=== PATIENT | male | born 2000 | race Hispanic/Latino ===

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

== ENCOUNTER 2020-03-07 00:56 | Emergency (ER) | payer OTHER ==
--- OUTSIDE RECORDS SUMMARY | 2020-03-07 00:59 | XMS REPORT | Continuity of Care Document ---
:2000 Author Organization [employer] Care Team Providers Name Role Phone [employer] Unavailable Un available Problems Problem Status Onset Classification Date Comments Sourc e Date Reported RIGHT BICEP [facility] KN[facility]HIP/[facility] 9 [place] [facility] Medications No Data Provided for This Section Allergies, Adverse Reactions, Alerts No Known Medication Allergies Immunizations No Data Provided for This Section Results No Data Provided for This Section Pathology Reports No Data Provided for This Section Diagnostic Reports No Data Provided for This Section Consultation Notes No Data Provided for This Section Discharge Summaries No Data Provided for This Section History and Physicals No Data Provided for This Section Vital Signs No Data Provided for This Section Encounters Location Location Encounter Encounter Reason Attending ADM DC Stat Source Details Type Number For Provider Date Date Visit [facility] OP Therapy [id number] Melo Kim 09/08 10/08 [facility] Patients /2018 [facility] [place] [facility] OP Therapy [id number] Melo Kim 04/18 05/18 [facility] Patients /2018 [facility] [place] Procedures No Data Provided for This Section Assessment and Plan No Data Provided for This Section Plan of Care No Data Provided for This Section Social History Social History Date Source No data available for this 05/18/2019 [facility] Family History No Data Provided for This Section Advance Directives No Data Provided for This Section Functional Status No Data Provided for This Section
--- OUTSIDE RECORDS SUMMARY | 2020-03-07 01:00 | XMS REPORT | Continuity of Care Document ---
:2000 Author Organization [facility] t Address [address] [place] [address] Care Team Providers Name Role Phone KALEB ALVAREZ M.D. Attending Clinician Unavailable Kaleb Alvarez Attending Clinician DR VENKATA Attending Clinician Unavailable DR VENKATA Admitting Clinician Unavailable Payers Payer Name Policy Type Policy Number Effective Date Expiration Date S ource Problems Condition Condition Condition Status Onset Resolution Last Treating Co mments Source Name Details Category Date Date Treatment Clinician Date RIGHT Diagnosis Active 2019-04-18 [facility] BICEP 9-03 16:13:00 l RIGHT 08:00: [place] BICEP 00 Active 04/05/2019 [facility] [place] RT Diagnosis Active 2018-09-10 Mem [facility] KNEE/HIP/Q -29 15:01:00 l UAD RT 16:12: [place] KNEE/HIP/Q 00 UAD Active 08/31/2018 [facility] [place] Biceps Biceps Problem Active [facility] tendinitis tendinitis it y of of right of right [place] upper upper Physici extremity extremity ans Right Right Problem Active [facility] elbow pain elbow pain it y of [place] [facility] ans Allergies, Adverse Reactions, Alerts Allergy Allergy Status Severity Reaction(s) Onset Inactive Treating Comm ents Source Name Type Date Date Clinician No Known DA Active [facility] 01-25 [place] [facility] amoxicil DA Active SV 2018- [facility] rosalie 6-25 [place] [facility] Social History Social Habit Start Date Stop Date Quantity Comments Source Social History 2019-05-18 2019-05-[address] [facility] Sourav de luna 04:59:00 04:59:00 Medications Ordered Filled Start Stop Current Ordering Indication Dosage Frequency Signature Comments Components Source Medication Medication Date Date Medication? Clinician (SIG) Name Name methylPREDN methylPREDN Yes KALEB ALVAREZ Take as Univers ISolone 4 ISolone 4 8-29 M.D. direct on ity of MG Oral MG Oral 00:00: the [place] Tablet Tablet 00 package. Physici Therapy Therapy QTY 1 x 21 ans Pack Pack tablet pack Diclofenac Diclofenac Yes KALEB ALVAREZ QD APPLY TO Univers Sodium 1 % Sodium 1 % 1-24 M.D. LOWER it y of Transdermal Transdermal 00:00: EXTREMITIE [place] Gel Gel 00 S, 4 GM OF Physici GEL TO ans AFFECTED AREA 4 TIMES DAILY. DO NOT APPLY MORE THAN 16 GM DAILY TO ANY ONE AFFECTED JOINT. Meloxicam Meloxicam Yes KALEB ALVAREZ 1 TAKE 1 Univers 15 MG Oral 15 MG Oral 1-24 M.D. TABLET i ty of Tablet Tablet 00:00: DAILY [place] 00 NEEDED. Physici ans Immunizations Ordered Immunization Filled Immunization Date Status Commen ts Source Name Name Varivax 1350 2012-12-14 Completed University o f PFU/0.5ML 00:00:00 [place] [facility] ns Subcutaneous Injectable Boostrix 5-2.5-18.5 2012-11-25 Completed Unive rsity of Intramuscular 00:00:00 [place] Physi cians Suspension Meningococcal, MCV4, 2012-11-25 Completed Univ ersity of unspecified 00:00:00 [place] [facility] ans conjugate formulation(groups A, C, Y and W-135) Hepatitis B, 2000 Completed University o f pediatric/adolescent 00:00:00 Clarissa enriquez Physicians dosage Procedures Procedure Date / Time Performed Performing Clinician Sourc e [U] XRAY HIP 2019-09-26 00:00:00 [facility] [place] UNILATERAL MIN 2 VWS Physicians RIGHT [id number] [U] XRAY ELBOW MIN 3 2019-06-23 00:00:00 [facility] [place] VWS RIGHT [id number] Physicians [U] XRAY SHOULDER MIN 2019-03-31 00:00:00 [facility] 2 VWS RIGHT [id number] Physicians [U] XRAY HIP 2019-03-30 00:00:00 [facility] UNILATERAL MIN 2 VWS Physicians RIGHT [id number] Encounters Start End Encounter Admission Attending Care Care Encounter Source Date/Time Date/Time Type Type Clinicians Facility Department ID 2019-09-27 2019-09-27 Appointmen NORMA ALVAREZ [facility] [id number] Univers 09:45:00 09:45:00 t; KALEB ALVAREZ M.D. - Trimontrocio Galindo M.D. [place] [facility] ans 2019-06-23 2019-06-23 Appointmen NORMA ALVAREZ [facility] [id number] Univers 15:45:00 15:45:00 t; KALEB ALVAREZ M.D. i ty of [place], M.D. [place] [facility] ans 2019-06-23 2019-06-23 Appointmen NORMA ALVAREZ [facility] [id number] Univers 12:45:00 12:45:00 t; KALEB ALVAREZ M.D. - Trimontrocio Galindo M.D. [place] [facility] 2019-05-19 2019-05-19 Appointmen NORMA ALVAREZ [facility] [id number] Univers 15:45:00 15:45:00 t; KALEB ALVAREZ M.D. i ty of [place], M.D. [place] [facility] ans 2019-04-18 2019-05-17 Outpatient Kaleb Alvarez [id number]. [id number]. 1. [id number] 15:50:00 23:59:00 [place] [id number] [id number] 2019-03-31 2019-03-31 Appointmen NORMA ALVAREZ [facility] [id number] Univers 14:45:00 14:45:00 t; KALEB ALVAREZ M.D. - Michell Galindo M.D. [place] [facility] 2018-10-28 2018-10-28 Appointmen NORMA ALVAREZ [facility] [id number] Univers 16:00:00 16:00:00 t; KALEB ALVAREZ M.D. at [facility] 2018-10-21 2018-10-21 Appointmen [facility] [id number] Univers 14:45:00 14:45:00 t; KALEB ALVAREZ M.D. i ty of [facility] 2018-09-08 2018-10-07 Outpatient Kaleb Alvarez [id number]. [id number]. 1. [id number] 16:00:00 23:59:00 [place] [id number] [id number] 2018-08-26 2018-08-26 Appointmen NORMA ALVAREZ [facility] [id number] Univers 15:30:00 15:30:00 t; KALEB ALVAREZ M.D. at [facility] 2018-05-20 2018-05-20 Outpatient Aye [facility] [id number] [place] 04:34:00 07:15:00 [facility] Results Test Description Test Time Test Comments Results Result [facility] e Comments [U] XRAY 2019-03-04 Images acquired, Universi ty of SHOULDER MIN 2 9 not reported on [facility] RIGHT [id number] 15:17:00 this accession Physi cians number. SURG 2019-01-02 8 16:21:00 RUN DATE: 01/28/19 [facility] - LAB *LIVE* PAGE 1 RUN TIME: 1621 Specimen Inquiry RUN USER: INTERFACE GINGER IENT: MARIAH BERTRAND LOC: Kenna U #: [id number] AGE/SX: 18/M ROOM: [facility] RE01/27/19[facility] DR: Jasmeet Sotomayor III : 00 BED: 1 DIS: STATUS: ADM Princess TLOC: SPEC #: [id number] RECD: 01/27/19 STATUS: [place] REQ #: [id number] CELIA: 01/27/[address] [facility] [address]: Jasmeet Sotomayor III, MD ENTERED: 01/27/19 SP TYPE: SURG OTHR DR: Didier Zuñiga MD ORDERED: SURG PATH LVL 1, SURG PATH LVL 10/03 COPIES TO: Didier Zuñiga MD [address] [place], [place] [address] [place] [address] [facility] [address] [place] [address] HISTOLOGY: TISSUE ID BLK PCS MYLA LEV PROCEDURE DISPOSITION ____ ___ ___ ___ TONSIL, NOS A 1 1 TONSIL, NOS B 1 1 NASAL SEPTUM, N C 1 1 NASAL TURBINATE D 1 1 PROCEDURES: SURG PATH LVL 1 (01/28/19) SURG PATH LVL 3 (01/27/19) TISSUES: A. TONSIL, NOS - RIGHT TONSIL B. TONSIL, NOS - LEFT TONSIL C. NASAL SEPTUM, NOS - SEPTUM D. 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 Tonsil, right, tonsillectomy: CHRONIC TONSILLITIS CONTINUED ON NEXT PAGE RUN DATE: 01/28/19 [facility] - LAB *LIVE* PAGE 2 RUN TIME: 1621 Specimen Inquiry RUN USER: INTERFACE JOHN Griffiths #: [id number] PATIENT: MARIAH BERTRAND #[id number] (Continued)-------- -------- FINAL DIAGNOSIS (Continued) B. Tonsil, left, tonsillectomy: CHRONIC TONSILLITIS C. Nasal septum, septoplasty: UNREMARKABLE FRAGMENTS OF BONE AND CARTILAGE (GROSS DIAGNOSIS ONLY) D. Turbinates, excision: MILD CHRONIC INFLAMMATION GROSS DESCRIPTION A. Right tonsil. Received in formalin is a fragment of welsh-brown soft tissue, partially covered by pink-welsh mucosa, 2.5 x 1.7 x 0.8 cm. The cut surface is soft, pink-welsh with crypts. No gross lesion is identified. Dielectric Press Operator section submitted as A. B. Left tonsil. Received in formalin is a fragment of welsh-brown soft tissue, partially covered by pink-welsh mucosa, 3.0 x 2.0 x 0.8 cm. The cut surface is soft, pink-welsh with crypts. No gross lesion is identified. Dielectric Press Operator section submitted as B. C. Septum. Received in formalin are multiple irregular fragments of cartilage and bones, 3.5 x 3.0 x 0.5 cm in aggregate. The specimen is for gross identification only and is photographed. D. Turbinates. Received in formalin are irregular fragments of welsh-brown soft tissue admixed with dark brown blood clots, 2.5 x 1.0 x 0.3 cm in aggregate. Dielectric Press Operator sections submitted as D. ba/nr Grossing performed at [facility] Pathology, [address] [place] [address], [address], [place] [address]. Artificial Inseminator: Giovani Smalls M.D. MICROSCOPIC DESCRIPTION A. Right tonsil. Sections demonstrate tonsillar tissue with lymphoid hyperplasia. Associated squamous mucosa demonstrates acute and chronic inflammation. No dysplasia or malignancy is identified. B. Left tonsil. Sections demonstrate tonsillar tissue with lymphoid hyperplasia. Associated squamous mucosa demonstrates acute and chronic inflammation. No dysplasia or malignancy is identified. C. Septum. No sections submitted. Gross diagnosis only. D. Turbinates. Sections demonstrate respiratory mucosa with underlying glands and mild chronic inflammation. No dysplasia or malignancy is identified. CONTINUED ON NEXT PAGE RUN DATE: 01/28/19 [facility] - LAB *LIVE* PAGE 3 RUN TIME: 1621 Specimen Inquiry RUN USER: INTERFACE JOHN Griffiths #: [id number] PATIENT: MARIAH BERTRAND #[id number] (Continued)-------- -------- Signed SIGNATURE ON FILE Jorje Deal Alannah 01/28/19 1621 END OF REPORT PROTHROMBIN TIME 2019-01-27 06:59:00 Test Item Value Reference Range Interpretation Jeannine guzmán PT PATIENT (test code = PTP) 12.1 SECONDS 9.3-12.9 N INTERNATIONAL NORMAL RATIO (test code = INR) 1.05 INR Unit 0.8-1.2 N THROMBOPLASTIN TIME [id number] 06:59:00 Test Item Value Reference Range Interpretation Comments THROMBOPLASTIN TIME PARTIAL 30.4 SECONDS 26-35 N (test code = PTT) CBC W/AUTO [id number] 06:20:00 Test Item Value Reference Range Interpretation Comments WHITE BLOOD CELL (test code = 5.5 K/mm3 3.5-11.0 N WBC) RED BLOOD CELL (test code = RBC) 4.71 M/mm3 4.70-6.10 N HEMOGLOBIN (test code = HGB) 15.3 G/DL 12.3-15.9 N HEMATOCRIT (test code = HCT) 43.2 % 35.8-46.7 N MEAN CELL VOLUME (test code = 91.7 Fl 86.3-98.9 N MCV) MEAN CELL HGB (test code = MCH) 32.5 pg 28.9-34.4 N MEAN CELL HGB CONCETRATION (test 35.4 G/DL 32.1-34.5 H code = MCHC) RED CELL DISTRIBUTION WIDTH (test 12.8 SD 11.5-14.5 N code = RDW) PLATELET COUNT (test code = PLT) 223.0 K/mm3 150-450 N MEAN PLATELET VOLUME (test code = 10.10 fL 7.0-9.6 H MPV) NEUTROPHIL % (test code = NT%) 40.2 % 24.0-85.0 N LYMPHOCYTE % (test code = LY%) 44.6 % 20.5-51.1 N MONOCYTE % (test code = MO%) 12.1 % 1.7-9.3 H EOSINOPHIL % (test code = EO%) 2.0 % 0.0-6.0 N BASOPHIL % (test code = BA%) 1.1 % 0.0-2.0 N NEUTROPHIL # (test code = NT#) 2.23 K/mm3 1.8-7.6 N LYMPHOCYTE # (test code = LY#) 2.5 K/mm3 0.6-3.0 N MONOCYTE # (test code = MO#) 0.7 K/mm3 0.2-1.5 N EOSINOPHIL # (test code = EO#) 0.1 K/mm3 0.0-0.4 N BASOPHIL # (test code = BA#) 0.1 K/mm3 0.0-0.2 N MANUAL DIFF REQUIRED (test code = NO DIFF/SCN CRITERIA MDIFF) [U] XRAY KNEE 1 OR 2 VWS RIGHT [id number] 15:21:00Images acquired, not reported on this accession number.[facility]
[2020-03-07] MEDS ORDERED: KETOROLAC 30 MG/ML INJ ONE (01:42)
[2020-03-07] MEDS ORDERED: HYDROMORPHONE HCL 1 MG/ML INJ ONE (01:43)
[2020-03-07] MEDS ORDERED: ONDANSETRON 4 MG (ODT) TAB ONE (01:43)
--- NOTE | 2020-03-07 02:26 | EDPHYS ---
Physician Documentation [facility] Name: Gallo Carreno IV Age: 19 yrs Sex: Male : 2000 Arrival Date: 03/07/2020 Time: 00:59 Bed 15 Private MD: Didier Zuñiga ED Physician Donell Jalloh HPI: 03/07 01:48 This 19 yrs old Male presents to ER via Ambulatory with complaints of Post jr8 Surgical Pain. 01:48 The complaints affect the right wrist diffusely. Onset: The symptoms/episode jr8 began/occurred acutely, today. Modifying factors: The symptoms are alleviated by nothing, the symptoms are aggravated by movement. Associated signs and symptoms: The patient has no apparent associated signs or symptoms. The patient has not experienced similar symptoms in the past. The patient has been recently seen by a physician:. Patient had recent carpal tunnel release. Stated that today he had brace on wrong. Started to have pain at surgical site that has now intensified and that his OTC medicines and prescriptive medicines are not working . Historical: - Allergies: 01:15 Amoxicillin; mt2 - Home Meds: 01:20 Lyrica Oral 1 cap 3 times per day [Active]; Wellbutrin 75 mg Oral tab 1 tab DAILY mt2 [Active]; hydroxyzine HCl 25 mg Oral tab 1 tab PRN for Anxiety [Active]; hydrocodone-acetaminophen 5-325 mg Oral tab 1 tab every 6 hours for Pain [Active]; - PSHx: 01:15 Tonsillectomy; mt2 - Immunization history:: Adult Immunizations up to date. - Social history:: Smoking status: Patient denies any tobacco usage or history of. ROS: 01:48 Eyes: Negative for injury, pain, redness, and discharge, ENT: Negative for injury, jr8 pain, and discharge, Neck: Negative for injury, pain, and swelling, Cardiovascular: Negative for chest pain, palpitations, and edema, Respiratory: Negative for shortness of breath, cough, wheezing, and pleuritic chest pain, Abdomen/GI: Negative for abdominal pain, nausea, vomiting, diarrhea, and constipation, Back: Negative for injury and pain, Skin: Negative for injury, rash, and discoloration, Neuro: Negative for headache, weakness, numbness, tingling, and seizure. 01:48 MS/extremity: Positive for pain, tenderness, of the right hand. Exam: 01:48 Cardiovascular: Regular rate and rhythm with a normal S1 and S2. No gallops, murmurs, jr8 or rubs. Normal PMI, no JVD. No pulse deficits. Respiratory: Lungs have equal breath sounds bilaterally, clear to auscultation and percussion. No rales, rhonchi or wheezes noted. No increased work of breathing, no retractions or nasal flaring. Skin: Warm, dry with normal turgor. Normal color with no rashes, no lesions, and no evidence of cellulitis. Neuro: Awake and alert, GCS 15, oriented to person, place, time, and situation. Cranial nerves II-XII grossly intact. Motor strength 5/5 in all extremities. Sensory grossly intact. Cerebellar exam normal. Normal gait. 01:48 Constitutional: The patient appears alert, awake, anxious, in obvious pain, uncomfortable. 01:48 Musculoskeletal/extremity: Extremities: grossly normal except: noted in the right wrist/hand: Patient has approximately 2.5 cm surgical incision noted to right wrist region from carpal tunnel release. Sutures in place. No dehiscence noted. No erythema or discharge noted. Moderate pain to palpation , ROM: intact in all extremities, Circulation is intact in all extremities. Sensation intact. Vital Signs: 01:11 BP 121 / 70; Pulse 118; Resp 16; Temp 98.5; Pulse Ox 100% ; Weight 56.7 kg; Pain 10/10; mt2 02:00 BP 96 / 56; Pulse 81; Resp 16; Pulse Ox 97% ; Pain 3/10; mt2 MDM: 01:12 Patient medically screened. jr8 01:48 Data reviewed: vital signs, nurses notes, and as a result, I will discharge patient. jr8 Data interpreted: Pulse oximetry: on room air is 97 %. Interpretation: normal. Counseling: I had a detailed discussion with the patient and/or guardian regarding: the historical points, exam findings, and any diagnostic results supporting the discharge/admit diagnosis, the need for outpatient follow up, a orthopedic surgeon, to return to the emergency department if symptoms worsen or persist or if there are any questions or concerns that arise at home. ED course: Discussed with patient that he is likely having some breakthrough pain. Patient feeling better. No other acute findings on exam suggestive of infection or other post surgical complications that would warrant emergent admission and consultation with orthopedics. Will have him f/u up with Dr. Salazar tomorrow. Patient good with plan . Administered Medications: 01:39 Drug: Zofran (Ondansetron) 4 mg Route: PO; mt2 02:00 Follow up: Response: No adverse reaction; Pain is decreased mt2 01:39 Drug: TORadol - Ketorolac 15 mg Route: IM; Site: left deltoid; mt2 02:00 Follow up: Response: No adverse reaction; Pain is decreased mt2 01:39 Drug: Dilaudid 1 mg Route: IM; Site: left deltoid; mt2 02:00 Follow up: Response: No adverse reaction; Pain is decreased mt2 Disposition: 03:10 Co-signature as Attending Physician, Donell Jalloh MD. rn Disposition: 03/07/20 02:25 Discharged to Home. Impression: Other acute postprocedural pain. - Condition is Stable. - Discharge Instructions: Pain Medicine Instructions. - Medication Reconciliation Form, Thank You Letter, Antibiotic Education, Prescription Opioid Use form. - Follow up: Stevie Carias MD; When: Tomorrow; Reason: Recheck today's complaints, Continuance of care, Re-evaluation by your physician. - Problem is new. - Symptoms have improved. Signatures: Donell Jalloh MD MD rn Roszak, Josh, PA PA jr8 Vi Mon RN RN mt2 Corrections: (The following items were deleted from the chart) 02:33 02:25 03/07/2020 02:25 Discharged to Home. Impression: Other acute postprocedural pain. mt2 Condition is Stable. Forms are Medication Reconciliation Form, Thank You Letter, Antibiotic Education, Prescription Opioid Use. Follow up: Stevie Carias; When: Tomorrow; Reason: Recheck today's complaints, Continuance of care, Re-evaluation by your physician. Problem is new. Symptoms have improved. jr8
--- NOTE | 2020-03-07 02:26 | ER ---
Nurse's Notes [facility] Name: Gallo Carreno IV Age: 19 yrs Sex: Male : 2000 Arrival Date: 03/07/2020 Time: 00:59 Bed 15 Private MD: Didier Zuñiga Diagnosis: Other acute postprocedural pain Presentation: 03/07 01:11 Chief complaint: Patient states: PER PT S/P CARPAL TUNNEL SX ON RIGHT WRIST. PAIN HAS mt2 INCREASED AND IT IS INTOLERABLE. NOS/S OF REDNESS OR SWELLING. Coronavirus screen: Client denies travel out of the [place] in the last 14 days. At this time, the client does not indicate any symptoms associated with coronavirus-19. Ebola Screen: No symptoms or risks identified at this time. Initial Sepsis Screen: Does the patient meet any 2 criteria? No. Patient's initial sepsis screen is negative. Does the patient have a suspected source of infection? No. Patient's initial sepsis screen is negative. Risk Assessment: Do you want to hurt yourself or someone else?. Onset of symptoms was March 06, 2020. 01:11 Method Of Arrival: Ambulatory mt2 01:11 Acuity: AIME 4 mt2 Triage Assessment: 01:15 General: Appears uncomfortable, Behavior is cooperative. Pain: Complains of pain in mt2 right hand Pain currently is 10 out of 10 on a pain scale. Musculoskeletal: Denies numbness in, right hand pain in, right hand. Historical: - Allergies: 01:15 Amoxicillin; mt2 - Home Meds: 01:20 Lyrica Oral 1 cap 3 times per day [Active]; Wellbutrin 75 mg Oral tab 1 tab DAILY mt2 [Active]; hydroxyzine HCl 25 mg Oral tab 1 tab PRN for Anxiety [Active]; hydrocodone-acetaminophen 5-325 mg Oral tab 1 tab every 6 hours for Pain [Active]; - PSHx: 01:15 Tonsillectomy; mt2 - Immunization history:: Adult Immunizations up to date. - Social history:: Smoking status: Patient denies any tobacco usage or history of. Screenin:16 Abuse screen: Denies threats or abuse. Nutritional screening: No deficits noted. mt2 Tuberculosis screening: No symptoms or risk factors identified. Fall Risk None identified. Assessment: 02:00 Reassessment: Patient and/or family updated on plan of care and expected duration. Pain mt2 level reassessed. Patient is alert, oriented x 3, equal unlabored respirations, skin warm/dry/pink. General: Appears comfortable, Behavior is cooperative. Pain: Complains of pain in right hand Pain currently is 3 out of 10 on a pain scale. Quality of pain is described as aching. Vital Signs: 01:11 BP 121 / 70; Pulse 118; Resp 16; Temp 98.5; Pulse Ox 100% ; Weight 56.7 kg; Pain 10/10; mt2 02:00 BP 96 / 56; Pulse 81; Resp 16; Pulse Ox 97% ; Pain 3/10; mt2 ED Course: 00:59 Patient arrived in ED. es 01:00 Didier Zuñiga MD is Private Physician. es 01:03 Vi Mon, JIE is Primary Nurse. mt2 01:12 [facility] jr8 01:12 Donell Jalloh MD is Attending Physician. jr8 01:14 Triage completed. mt2 01:16 Arm band placed on right wrist. mt2 01:16 Bed in low position. Call light in reach. Side rails up X 1. mt2 02:24 Stevie Carias MD is Referral Physician. jr8 02:27 No provider procedures requiring assistance completed. Patient did not have IV access mt2 during this emergency room visit. Administered Medications: 01:39 Drug: Zofran (Ondansetron) 4 mg Route: PO; mt2 02:00 Follow up: Response: No adverse reaction; Pain is decreased mt2 01:39 Drug: TORadol - Ketorolac 15 mg Route: IM; Site: left deltoid; mt2 02:00 Follow up: Response: No adverse reaction; Pain is decreased mt2 01:39 Drug: Dilaudid 1 mg Route: IM; Site: left deltoid; mt2 02:00 Follow up: Response: No adverse reaction; Pain is decreased mt2 Outcome: 02:25 Discharge ordered by . jr8 02:27 Discharged to home ambulatory. mt2 02:27 Condition: improved 02:27 Discharge instructions given to patient, Instructed on discharge instructions, follow up and referral plans. medication usage, Demonstrated understanding of instructions, follow-up care, medications. 02:33 Patient left the ED. mt2 Signatures: Sherita Weir Josh, PA PA jr8 Vi Mon RN RN mt2
[2020-03-07 02:38] VITALS: TEMP 98.5
[2020-03-07 02:39] VITALS: BP 96/56; O2SAT 97
== END 2020-03-07 02:33 | disposition home or self-care (01) ==
LOC: ER 00:56
DX: G89.18 Other acute postprocedural pain (principal); Z98.890 Other specified postprocedural states; Z88.1 Allergy status to other antibiotic agents
CPT/HCPCS: 96372; 99283; J1170

== ENCOUNTER 2024-03-03 23:43 | Emergency (ER) | payer OTHER ==
[2024-03-04] MEDS ORDERED: ASPIRIN 81 MG CHEWABLE TABLET ONE (01:48)
[2024-03-04] MEDS ORDERED: LORazepam 2 MG/ML VIAL ONE (01:48)
[2024-03-04] MEDS ORDERED: MORPHINE 2 MG/ML SYR ONE (01:49)
[2024-03-04 02:19] LABS: Absolute Basophils 0.1 K/uL (0-0.5); Absolute Eosinophils 0.1 K/uL (0-0.5); Absolute Lymphocytes (CBC) 1.6 K/uL (0.7-4.9); Absolute Monocytes 0.7 K/uL (0.1-1.3); Hemoglobin 14.7 g/dL (13.6-17.9); MCH 32.2 pg (27.0-35.0); MCHC 35.1 g/dL (32.0-36.0); MCV 91.7 fL (80-100); MPV 8.9 fL (7.6-11.3); Monocytes % 12.6 % (3.3-12.3); Neutrophils % 55.4 % (41.7-73.7); Nucleated Red Blood Cells % 0.2 % (0-0); Platelets 238 thou/uL (152-406); RBC Red Blood Cell Count 4.58 M/uL (4.33-5.43)
[2024-03-04 02:38] LABS: ALT/SGPT 25 U/L (16-61); AST/SGOT 16 U/L (15-37); Albumin/Globulin Ratio 1.4 (1.1-1.8); Alkaline Phosphatase 145 U/L (45-117); Anion Gap 7.2 mEq/L (5.0-15.0); BUN Blood Urea Nitrogen 18 mg/dL (7-18); Bicarbonate 31 mEq/L (21-32); Bilirubin Total 0.6 mg/dL (0.2-1.0); Globulin 2.9 g/dL (2.3-3.5); Glomerular Filtration Rate 90 ml/min (=/>90); Glucose Level 82 mg/dL (74-106); Magnesium 2.2 mg/dL (1.6-2.4); NT PRO-BNP 6 pg/mL (<125); Potassium 3.2 mEq/L (3.5-5.1); Protein, Total 6.9 g/dL (6.4-8.2); Sodium Level 141 mEq/L (136-145); Troponin High Sensitivity 3.5 pg/mL (<58.9)
[2024-03-04 02:39] LABS: PT Prothrombin Time 12.1 SECONDS (9.4-12.5); Protime INR 1.08
[2024-03-04 02:40] LABS: Bilirubin Direct < 0.2 mg/dL (0-0.2); Bilirubin Indirect, Calculated 0.4 mg/dL (0.2-0.8)
--- NOTE | 2024-03-04 04:42 | ER ---
Nurse's Notes [facility] Name: Gallo Carreno IV Age: 23 yrs Sex: Male : 2000 Arrival Date: 03/03/2024 Time: 23:43 Bed 18 Private MD: Diagnosis: Anxiety disorder, unspecified;acute panic attack Presentation: 03/03 23:48 Chief complaint: Patient states: Pt c/o sudden onset of chest pain, numbness/tingling tl4 in both arms, and weakness/tightness in bilateral tricep muscles x 5-10 minutes. Coronavirus screen: At this time, the client does not indicate any symptoms associated with coronavirus-19. Ebola Screen: No symptoms or risks identified at this time. Initial Sepsis Screen: Does the patient meet any 2 criteria? No. Patient's initial sepsis screen is negative. Does the patient have a suspected source of infection? No. Patient's initial sepsis screen is negative. Risk Assessment: Do you want to hurt yourself or someone else? Patient reports no desire to harm self or others. Onset of symptoms was March 03, 2024 at 23:35. 23:48 Method Of Arrival: Wheelchair tl4 23:48 Acuity: AIME 3 tl4 Triage Assessment: 23:54 General: Appears distressed, Behavior is anxious. Pain: Complains of pain in chest. tl4 EENT: No signs and/or symptoms were reported regarding the EENT system. Neuro: Level of Consciousness is awake, alert, obeys commands, Oriented to person, place, time, situation. Cardiovascular: Reports chest pain. Respiratory: Airway is patent Respiratory effort is even, unlabored, Respiratory pattern is regular, symmetrical. GI: No signs and/or symptoms were reported involving the gastrointestinal system. : No signs and/or symptoms were reported regarding the genitourinary system. Derm: No signs and/or symptoms reported regarding the dermatologic system. Musculoskeletal: No signs and/or symptoms reported regarding the musculoskeletal system. Historical: - Allergies: 23:50 Amoxicillin; tl4 - Home Meds: 23:50 hydroxyzine HCl 25 mg Oral tab 1 tab PRN for Anxiety [Active]; pregabalin 100 mg oral tl4 capsule daily [Active]; Adderall XR 15 mg oral Capsule, ER 24 hr daily [Active]; Cymbalta oral 90 mg daily [Active]; Auvelity 45-105 mg oral tablet,IR \T\ delayed release,biphasic twice a day [Active]; - PMHx: 23:50 Fibromyalgia; Anxiety; Depressive disorder; chronic fatigue syndrome; tl4 - PSHx: 23:50 Septoplasty; Adenoid excision; Tonsillectomy; Carpal Tunnel; UPPP; tl4 - Immunization history:: Adult Immunizations unknown. - Infectious Disease History:: Denies. - Social history:: Smoking status: Patient denies any tobacco usage or history of. - Family history:: not pertinent. Assessment: 03/04 01:21 Pain: Complains of pain in chest. Neuro: No deficits noted. Cardiovascular: Reports [facility] palpitations, Chest pain. Respiratory: No deficits noted. GI: No deficits noted. : No deficits noted. 03:50 General: Appears in no apparent distress. Behavior is calm, cooperative. [facility] Vital Signs: 03/03 23:48 BP 128 / 69; Pulse 114; Resp 18; Temp 97.6(TE); Pulse Ox 100% on R/A; Weight 79.83 kg; tl4 Height 5 ft. 4 in. ; Pain 1/10; 03/04 02:49 BP 122 / 62; Pulse 89; Resp 14; Pulse Ox 95% ; Pain 0/10; [facility] 03:50 Pulse 84; Pulse Ox 95% ; [facility] 05:09 BP 124 / 62; Pulse 62; Resp 14; Temp 98.2; Pulse Ox 100% ; Pain 0/10; 12 03/03 23:48 Body Mass Index 30.21 (79.83 kg, 162.56 cm) tl4 03/03 23:48 Pain Scale: Adult 4 03/04 02:49 Pain Scale: Adult [facility] 05:09 Pain Scale: Adult [facility] Lin Coma Score: 04:42 Eye Response: spontaneous(4). Motor Response: obeys commands(6). Verbal Response: sp4 oriented(5). Total: 15. ED Course: 03/03 23:45 Patient arrived in ED. jj6 23:46 Kelechi Cortes MD is Attending Physician. sp4 23:50 Triage completed. tl4 23:57 Arm band placed on right wrist. tl4 03/04 00:37 XRAY Chest (1 view) In Process Unspecified. EDMS 01:22 Patient has correct armband on for positive identification. Bed in low position. Call [facility] light in reach. Side rails up X 1. 01:39 Basic Metabolic Panel Sent. jm12 01:40 CBC with Diff Sent. jm12 01:40 LFT's Sent. jm12 01:40 Magnesium Sent. jm12 01:40 NT PRO-BNP Sent. jm12 01:40 PT-INR Sent. jm12 01:40 Troponin HS Sent. jm12 02:01 Inserted saline lock: 22 gauge in right antecubital area, using aseptic technique. vk Blood collected. Flushed with 10 mL NS. 02:02 Initial lab(s) drawn, by me, sent to lab. vk 04:13 EKG done, by ED staff. vk 05:09 IV discontinued, intact, bleeding controlled, No redness/swelling at site. Pressure jm12 dressing applied. Administered Medications: 02:06 Drug: Aspirin PO Chewable Tablet 324 mg PO once; 81 mg tablets x 4 Route: PO; 12 02:06 Drug: Ativan IVP 2 mg IVP once Route: IVP; Site: right antecubital; [facility] 02:50 Follow up: Response: Marked relief of symptoms [facility] 02:06 Drug: morphine IVP or IV 2 mg IVP once over 4 mins Route: IVP; Infused Over: 4 mins; 12 Site: right antecubital; 02:50 Follow up: Response: Marked relief of symptoms [facility] Outcome: 04:42 Discharge ordered by . sp4 05:10 Discharged to home ambulatory, [facility] 05:10 Condition: stable 05:10 Discharge instructions given to patient, family, Instructed on discharge instructions, follow up and referral plans. medication usage, Demonstrated understanding of instructions, follow-up care, medications, Prescriptions given X 1, 05:11 Patient left the ED. jm12 Signatures: Dispatcher [employer] EDTN Tamy RobinsjKelechi Farmer MD MD sp4 Fox Nicole RN RN [email or web address] Ofelia Kelly Jessica, JIE RN 12
--- NOTE | 2024-03-04 04:43 | EDPHYS ---
Physician Documentation [facility] Name: Gallo Carreno IV Age: 23 yrs Sex: Male : 2000 Arrival Date: 03/03/2024 Time: 23:43 Bed 18 Private MD: ED Physician Kelechi Cortes HPI: 03/03 23:46 This 23 yrs old Male presents to ER via Unassigned with complaints of sp4 Dizziness, Arm Pain, Shoulder Pain, Irregular Pulse, Chest Pain. 03/04 04:42 23-year-old male with history of fibromyalgia anxiety and depression on Cymbalta and sp4 Adderall, presents with acute onset chest pain and shortness of breath palpitations dizziness.. Historical: - Allergies: 03/03 23:50 Amoxicillin; tl4 - Home Meds: 23:50 hydroxyzine HCl 25 mg Oral tab 1 tab PRN for Anxiety [Active]; pregabalin 100 mg oral tl4 capsule daily [Active]; Adderall XR 15 mg oral Capsule, ER 24 hr daily [Active]; Cymbalta oral 90 mg daily [Active]; Auvelity 45-105 mg oral tablet,IR \T\ delayed release,biphasic twice a day [Active]; - PMHx: 23:50 Fibromyalgia; Anxiety; Depressive disorder; chronic fatigue syndrome; tl4 - PSHx: 23:50 Septoplasty; Adenoid excision; Tonsillectomy; Carpal Tunnel; UPPP; tl4 - Immunization history:: Adult Immunizations unknown. - Infectious Disease History:: Denies. - Social history:: Smoking status: Patient denies any tobacco usage or history of. - Family history:: not pertinent. ROS: 03/04 04:42 Constitutional: Negative for fever, chills, and weight loss, positive chest pain, sp4 dizziness, irregular pulse, anxiety All other systems are negative, Exam: 04:42 Constitutional: This is a well developed, well nourished patient who is awake, alert, sp4 and in no acute distress. Head/Face: Normocephalic, atraumatic. Eyes: Pupils equal round and reactive to light, extra-ocular motions intact. Lids and lashes normal. Conjunctiva and sclera are not injected. Cornea within normal limits. Periorbital areas with no swelling, redness, or edema. ENT: Nares patent. No nasal discharge, no septal abnormalities noted. Tympanic membranes are normal and external auditory canals are clear. Oropharynx with no redness, swelling, or masses, exudates, or evidence of obstruction, uvula midline. Mucous membranes moist. Neck: Trachea midline, no thyromegaly or masses palpated, and no cervical lymphadenopathy. Supple, full range of motion without nuchal rigidity, or vertebral point tenderness. Chest/axilla: Normal chest wall appearance and motion. Nontender with no deformity. No lesions are appreciated. Cardiovascular: Regular rate and rhythm with a normal S1 and S2. No gallops, murmurs, or rubs. Normal PMI, no JVD. No pulse deficits. Respiratory: Lungs have equal breath sounds bilaterally, clear to auscultation and percussion. No rales, rhonchi or wheezes noted. No increased work of breathing, no retractions or nasal flaring. Abdomen/GI: Soft, with normal bowel sounds. No distension or tympany. No guarding or rebound. No evidence of tenderness throughout. Back: No spinal tenderness. No costovertebral tenderness. Skin: Warm, dry with normal turgor. Normal color with no rashes, no lesions, and no evidence of cellulitis. MS/ Extremity: Pulses equal, no cyanosis. Neurovascular intact. Full, normal range of motion. Neuro: Awake and alert, GCS 15, oriented to person, place, time, and situation. Cranial nerves II-XII grossly intact. Motor strength 5/5 in all extremities. Sensory grossly intact. Psych: Awake, alert, with orientation to person, place and time. Behavior, mood, and affect are within normal limits 04:45 ECG was reviewed by the Attending Physician. EKG at 0 356 there is normal sinus rhythm sp4 at the rate of 86 Vital Signs: 03/03 23:48 BP 128 / 69; Pulse 114; Resp 18; Temp 97.6(TE); Pulse Ox 100% on R/A; Weight 79.83 kg; tl4 Height 5 ft. 4 in. ; Pain 1/; 03/04 02:49 BP 122 / 62; Pulse 89; Resp 14; Pulse Ox 95% ; Pain 0/10; jm12 03:50 Pulse 84; Pulse Ox 95% ; jm12 05:09 BP 124 / 62; Pulse 62; Resp 14; Temp 98.2; Pulse Ox 100% ; Pain 0/10; jm12 03/03 23:48 Body Mass Index 30.21 (79.83 kg, 162.56 cm) 4 03/03 23:48 Pain Scale: Adult 4 03/04 02:49 Pain Scale: Adult jm12 05:09 Pain Scale: Adult jm12 [place] Coma Score: 04:42 Eye Response: spontaneous(4). Motor Response: obeys commands(6). Verbal Response: sp4 oriented(5). Total: 15. MDM: 03/03 23:47 Patient medically screened. 4 03/04 04:32 ED course: EXAM DESCRIPTION: Chest Single View RadLex: XR CHEST 1 VIEW CLINICAL sp4 HISTORY: 23 years Male, CHEST PAIN COMPARISON: None. FINDINGS: Single portable AP upright view of the chest. Trachea is midline. Normal size of the cardiac silhouette. No pulmonary vascular congestion. No focal consolidation, pleural effusion, or pneumothorax. No new osseous abnormality. IMPRESSION: No acute radiographic abnormality.. 04:45 Differential diagnosis: idiopathic dizziness, near-syncope, vertigo. Data reviewed: 4 vital signs, nurses notes. Data reviewed: lab test result(s), cardiac enzymes, electrolytes, hepatic panel, EKG, radiologic studies, plain films. 04:46 ED course: Workup is unremarkable, patient feels much better after Ativan. Patient is sp4 stable for discharge home. 03/03 23:46 Order name: Basic Metabolic Panel; Complete Time: 03:34 4 03/03 23:46 Order name: CBC with Diff; Complete Time: 03:34 4 03/03 23:46 Order name: LFT's; Complete Time: 03:34 sp4 03/03 23:46 Order name: Magnesium; Complete Time: 03:34 4 03/03 23:46 Order name: NT PRO-BNP; Complete Time: 03:34 4 03/03 23:46 Order name: PT-INR; Complete Time: 03:34 4 03/03 23:46 Order name: Troponin HS; Complete Time: 03:34 4 03/03 23:47 Order name: TSH; Complete Time: 03:34 4 03/03 23:46 Order name: XRAY Chest (1 view) [facility] 03/03 23:46 Order name: EKG; Complete Time: 23:47 sp4 03/03 23:46 Order name: Cardiac monitoring; Complete Time: 01:39 sp4 03/03 23:46 Order name: EKG - Nurse/Tech; Complete Time: 01:16 sp4 03/03 23:46 Order name: IV Saline Lock; Complete Time: 01:39 sp4 03/03 23:46 Order name: Labs collected and sent; Complete Time: 01:39 sp4 03/03 23:46 Order name: O2 Per Protocol; Complete Time: :22 sp4 03/03 23:46 Order name: O2 Sat Monitoring; Complete Time: :22 sp4 EC:45 Rate is 86 beats/min. Rhythm is regular, Normal Sinus Rhythm. QRS [place] is Normal. HI sp4 interval is normal. QRS interval is normal. QT interval is normal. No Q waves. T waves are Normal. No ST changes noted. Clinical impression: Normal ECG. Interpreted by me. Reviewed by me. Administered Medications: 02:06 Drug: Aspirin PO Chewable Tablet 324 mg PO once; 81 mg tablets x 4 Route: PO; [facility] 02:06 Drug: Ativan IVP 2 mg IVP once Route: IVP; Site: right antecubital; [facility] 02:50 Follow up: Response: Marked relief of symptoms [facility] 02:06 Drug: morphine IVP or IV 2 mg IVP once over 4 mins Route: IVP; Infused Over: 4 mins; [facility] Site: right antecubital; 02:50 Follow up: Response: Marked relief of symptoms [facility] Disposition Summary: 03/04/24 04:42 Discharge Ordered Notes: Location: Home sp4 Problem: new sp4 Symptoms: have improved sp4 Condition: Stable sp4 Diagnosis - Anxiety disorder, unspecified sp4 - acute panic attack sp4 Followup: sp4 - With: Private Physician - When: 7 - 10 days - Reason: Recheck today's complaints Discharge Instructions: - Discharge Summary Sheet sp4 - Panic Attack sp4 Forms: - Patient Portal Instructions sp4 Prescriptions: - Ativan 1 mg Oral tablet - take 1 tablet ORAL route once daily As needed PRN panic attacks; 12 tablet; sp4 Refills: 0, Product Selection Permitted Signatures: Dispatcher [facility] Kelechi Pearson MD MD sp4 Fox Nicole RN RN tl4 Markee, Zunilda, RN RN jm12
[2024-03-04 08:41] VITALS: BP 124/62; TEMP 98.2; O2SAT 100
--- NOTE | 2024-03-04 13:29 | EKG ---
Test Date: 2024-03-04 Test Time: 03:56:09 Data Collection Interviewer: PATTIE MEASUREMENT RESULTS: Intervals: Rate: 86 VA: 176 QRSD: 100 QT: 372 QTc: 445 [place]: P: 51 VA: 176 QRS: 85 T: 50 INTERPRETIVE STATEMENTS: Normal sinus rhythm Normal ECG Compared to ECG 09/22/2018 23:53:21 No significant changes Electronically Signed On 03-04-24 13:28:40 CDT by Aaron Zambrano
--- NOTE | 2024-03-04 14:07 | RAD REPORT ---
EXAM DESCRIPTION: Chest Single View RadLex: XR CHEST 1 VIEW CLINICAL HISTORY: 23 years Male, CHEST PAIN COMPARISON: None. FINDINGS: Single portable AP upright view of the chest. Trachea is midline. Normal size of the cardi ac silhouette. No pulmonary vascular congestion. No focal consolidation, pleural effusion, or pneumot horax. No new osseous abnormality. IMPRESSION: No acute radiographic abnormality. Electronically signed by: Mariel Santana MD 03/04/2024 01:43 AM CDT RP Due to temporary technical issues with the PACS/Fluency reporting system, reports are being signed by the in house radiologists without review as a courtesy to insure prompt reporting. The interpreting radiologist is fully responsible for the content of the report.
== END 2024-03-04 05:11 | disposition home or self-care (01) ==
LOC: ER 23:43
DX: F41.0 Panic disorder [episodic paroxysmal anxiety] (principal)
CPT/HCPCS: 93005; 85025; 80048; 36415; 83735; 85610; 80076; 84443; 84484; 83880; 71045; 96375; 96374; 99284; J2270

== ENCOUNTER 2024-05-25 07:15 | Emergency (ER) | payer OTHER ==
[2024-05-25 08:47] LABS: Absolute Basophils 0.1 K/uL (0-0.5); Absolute Eosinophils 0.1 K/uL (0-0.5); Absolute Lymphocytes (CBC) 2.9 K/uL (0.7-4.9); Absolute Monocytes 0.7 K/uL (0.1-1.3); Absolute Neutrophil 4.6 K/uL (1.8-8.0); Basophils % 1.2 % (0-1.3); Eosinophils % 1.5 % (0-4.4); Hematocrit 47.1 % (39.6-49.0); Hemoglobin 15.7 g/dL (13.6-17.9); Lymphocytes % 34.4 % (15.3-44.8); MCH 31.7 pg (27.0-35.0); MCHC 33.3 g/dL (32.0-36.0); MCV 95.2 fL (80-100); MPV 9.2 fL (7.6-11.3); Monocytes % 8.6 % (3.3-12.3); Neutrophils % 54.3 % (41.7-73.7); Nucleated Red Blood Cells % 0.1 % (0-0); Platelets 279 thou/uL (152-406); RBC Red Blood Cell Count 4.95 M/uL (4.33-5.43); Red Cell Distribution Width 13.2 % (12.1-15.2)
[2024-05-25] MEDS ORDERED: NA CHLORIDE 0.9% 1,000 ML ONE (09:03)
[2024-05-25 09:04] LABS: Albumin 3.8 g/dL (3.4-5.0); Albumin/Globulin Ratio 1.3 (1.1-1.8); Anion Gap 8.4 mEq/L (5.0-15.0); Bilirubin Total 0.3 mg/dL (0.2-1.0); Globulin 2.9 g/dL (2.3-3.5); Protein, Total 6.7 g/dL (6.4-8.2); Troponin High Sensitivity 3.9 pg/mL (<58.9)
[2024-05-25 09:05] LABS: Potassium 3.4 mEq/L (3.5-5.1)
[2024-05-25 09:05] LABS: SARS-CoV-2 Antigen CONTROL BLUE LINE VIS/BG OK; SARS-CoV-2 Antigen Rapid Res Negative (Negative)
--- NOTE | 2024-05-25 09:24 | EDPHYS ---
Physician Documentation [facility] Name: Gallo Carreno IV Age: 24 yrs Sex: Male : 2000 Arrival Date: 05/25/2024 Time: 07:15 Bed 16 Private MD: ED Physician Daniel Aragon HPI: 05/25 09:17 This 24 yrs old Male presents to ER via Ambulatory with complaints of Chest you Pain, Numbness Of Face, Doesn't Feel Right. 09:17 The patient or guardian reports chest pain that is located primarily in the substernal you area. The pain does not radiate. Associated signs and symptoms: Pertinent positives: cough. The chest pain is described as aching. Severity of pain: At its worst the pain was mild in the emergency department the pain is unchanged. The patient has experienced similar episodes in the past, a few times. Historical: - Allergies: 07:39 Amoxicillin; iw - PMHx: 07:39 Anxiety; Chronic fatigue syndrome; depressive disorder; Fibromyalgia; iw - PSHx: 07:39 Adenoid excision; carpal tunnel; septoplasty; Tonsillectomy; UPPP; iw - Immunization history:: Adult Immunizations not up to date. - Infectious Disease History:: Denies. - Social history:: Smoking status: Patient denies any tobacco usage or history of. - Family history:: not pertinent. ROS: 09:17 Constitutional: Negative for fever, chills, and weight loss, Eyes: Negative for injury, you pain, redness, and discharge, ENT: Negative for injury, pain, and discharge, Neck: Negative for injury, pain, and swelling, Cardiovascular: Negative for chest pain, palpitations, and edema, Respiratory: Negative for shortness of breath, cough, wheezing, and pleuritic chest pain, Abdomen/GI: Negative for abdominal pain, nausea, vomiting, diarrhea, and constipation, Back: Negative for injury and pain, : Negative for injury, bleeding, discharge, and swelling, MS/Extremity: Negative for injury and deformity, Skin: Negative for injury, rash, and discoloration, Psych: Negative for depression, anxiety, suicide ideation, homicidal ideation, and hallucinations, Allergy/Immunology: Negative for hives, rash, and allergies, Endocrine: Negative for neck swelling, polydipsia, polyuria, polyphagia, and marked weight changes, Hematologic/Lymphatic: Negative for swollen nodes, abnormal bleeding, and unusual bruising, 09:17 Neuro: Positive for weakness, Exam: 09:17 Constitutional: This is a well developed, well nourished patient who is awake, alert, you and in no acute distress. Head/Face: Normocephalic, atraumatic. Eyes: Pupils equal round and reactive to light, extra-ocular motions intact. Lids and lashes normal. Conjunctiva and sclera are non-icteric and not injected. Cornea within normal limits. Periorbital areas with no swelling, redness, or edema. ENT: Nares patent. No nasal discharge, no septal abnormalities noted. Tympanic membranes are normal and external auditory canals are clear. Oropharynx with no redness, swelling, or masses, exudates, or evidence of obstruction, uvula midline. Mucous membranes moist. Neck: Trachea midline, no thyromegaly or masses palpated, and no cervical lymphadenopathy. Supple, full range of motion without nuchal rigidity, or vertebral point tenderness. No Meningismus. Chest/axilla: Normal chest wall appearance and motion. Nontender with no deformity. No lesions are appreciated. Cardiovascular: Regular rate and rhythm with a normal S1 and S2. No gallops, murmurs, or rubs. Normal PMI, no JVD. No pulse deficits. Respiratory: Lungs have equal breath sounds bilaterally, clear to auscultation and percussion. No rales, rhonchi or wheezes noted. No increased work of breathing, no retractions or nasal flaring. Abdomen/GI: Soft, non-tender, with normal bowel sounds. No distension or tympany. No guarding or rebound. No evidence of tenderness throughout. Back: No spinal tenderness. No costovertebral tenderness. Full range of motion. Male : Normal genitalia with no discharge or lesions. Skin: Warm, dry with normal turgor. Normal color with no rashes, no lesions, and no evidence of cellulitis. MS/ Extremity: Pulses equal, no cyanosis. Neurovascular intact. Full, normal range of motion. Neuro: Awake and alert, GCS 15, oriented to person, place, time, and situation. Cranial nerves II-XII grossly intact. Motor strength 5/5 in all extremities. Sensory grossly intact. Cerebellar exam normal. Normal gait. Psych: Awake, alert, with orientation to person, place and time. Behavior, mood, and affect are within normal limits. 09:17 ECG was reviewed by the Attending Physician. 09:22 Musculoskeletal/extremity: DVT Exam: No signs of deep vein thrombosis. no pain, no you swelling, no tenderness, negative Homans' sign noted on exam, no appreciated bluish discoloration, no erythema, no increased warmth, Vital Signs: 07:34 BP 115 / 74; Pulse 96; Resp 16; Temp 98.1; Pulse Ox 97% on R/A; Weight 74.84 kg; Height iw 5 ft. 4 in. ; 09:14 BP 120 / 77; Pulse 80; Resp 17; Pulse Ox 99% on R/A; rs5 09:40 BP 124 / 74; Pulse 77; Resp 17; Pulse Ox 99% on R/A; rs5 07:34 Body Mass Index 28.32 (74.84 kg, 162.56 cm) iw MDM: 07:19 Medical Screening Exam initiated you 09:19 Differential diagnosis: abnormal EKG, acute myocardial infarction, acute pericarditis, you anxiety, chest wall pain, cholecystitis, Cholelithiasis costochondritis, esophagitis, hiatal hernia, pancreatitis, peptic ulcer disease, pericarditis, pleurisy, pneumonia, pulmonary embolus, stable angina, thoracic aortic disection, unstable angina. HEART Score: History: Slightly Suspicious (0), ECG: Normal (0), Age: < or = 45 years (0). DENISE Risk Score: TOTAL SCORE = 0. Data reviewed: vital signs, nurses notes, lab test result(s), EKG. Consideration of Admission/Observation Escalation of care including admission/observation considered. I considered the following discharge prescriptions or medication management in the emergency department Medications were administered in the Emergency Department. See MAR. Independent interpretation of the following test(s) in the Emergency Department EKG: See my EKG interpretation above. Test considered but Not performed: CT: NO CT BRAIN. Historians other than the Patient: Parent: DAD WELL INFORMED. Care significantly affected by the following chronic conditions: ANXIRTY, CHRONIC FATIGUE, FIBROMYALGIA. Counseling: I had a detailed discussion with the patient and/or guardian regarding the historical points, exam findings, and any diagnostic results supporting the discharge/admit diagnosis, lab results, radiology results, the need for outpatient follow up, for definitive care, a family practitioner. 05/25 08:33 Order name: CBC with Diff; Complete Time: 09:16 [facility] 05/25 08:33 Order name: Comprehensive Metabolic Panel; Complete Time: 09:16 [facility] 05/25 08:33 Order name: Flu [facility] 05/25 08:33 Order name: Strep [facility] 05/25 08:33 Order name: SARS RAPID; Complete Time: 09:16 [facility] 05/25 08:33 Order name: Troponin High Sensitivity; Complete Time: 09:16 [facility] 05/25 09:08 Order name: Throat Culture EDMS 05/25 08:33 Order name: Chest Pa And Lat (2 Views) XRAY [facility] 05/25 07:19 Order name: EKG; Complete Time: 07:20 [facility] 05/25 07:19 Order name: EKG - Nurse/Tech; Complete Time: 07:41 [facility] EC:17 Rate is 85 beats/min. Rhythm is regular. QRS [place] is Normal. [place] interval is normal. QRS you interval is normal. QT interval is normal. No Q waves. T waves are Normal. No ST changes noted. Clinical impression: Normal ECG and No evidence of ischemia. Interpreted by me. Reviewed by me. Administered Medications: 08:50 Drug: NS 0.9% IV 1000 ml IV at 1000 ml once; to be given as a bolus over 60 minutes rs5 Route: IV; Rate: 1000 ml; Site: left antecubital; 09:40 Follow up: IV Status: Completed infusion; IV Intake: 1000ml rs5 Disposition Summary: 05/25/24 09:23 Discharge Ordered Notes: Location: Home you Problem: new you Symptoms: have improved you Condition: Stable you Diagnosis - Chest pain, unspecified you - Hyperventilation you - Anxiety disorder, unspecified you Followup: you - With: Private Physician - When: 2 - 3 days - Reason: Recheck today's complaints, Re-evaluation by your physician Discharge Instructions: - Discharge Summary Sheet you - Panic Attack you - Nonspecific Chest Pain, Adult you - Nonspecific Chest Pain, Adult, [id number] you - Panic Attack, [id number] you - Aspirin and Your Heart you - Supporting Someone With Anxiety you - Managing Anxiety, Adult you Forms: - Medication Reconciliation Form you - Antibiotic Education you - Prescription Opioid Use you - Patient Portal Instructions you - Leadership Thank You Letter you Prescriptions: - Hydroxyzine HCl 25 mg Oral Tablet - take 1 tablet ORAL route every 6 hours As needed; 30 tablet; Refills: 0, [facility] Product Selection Permitted - Motrin IB 200 mg Oral tablet - take 2 tablet ORAL route every 6 hours As needed as needed with food; 30 you tablet; Refills: 0, Product Selection Permitted Signatures: Dispatcher [employer] EDMS Daniel Aragon MD MD cha Williams, Irene, RN RN iw Sonu Garcia RN RN rs5 Corrections: (The following items were deleted from the chart) 08:34 08:34 CBC+H.LAB.BRZ ordered. EDMS EDMS 08:34 08:34 COMPREHENSIVE METABOLIC PANEL+C.LAB.BRZ ordered. EDMS EDMS 08:34 08:34 Influenza Screen (A \T\ B)+BA.LAB.BRZ ordered. EDMS EDMS 08:34 08:34 Group A Streptococcus Rapid Sc+BA.LAB.BRZ ordered. EDMS EDMS 08:34 08:34 SARS-COV-2 Antigen Rapid+I.LAB.BRZ ordered. EDMS EDMS 08:34 08:34 Troponin High Sensitivity+C.LAB.BRZ ordered. EDMS EDMS
--- NOTE | 2024-05-25 09:24 | ER ---
Nurse's Notes [facility] Name: Gallo Carreno IV Age: 24 yrs Sex: Male : 2000 Arrival Date: 05/25/2024 Time: 07:15 Bed 16 Private MD: Diagnosis: Chest pain, unspecified;Hyperventilation;Anxiety disorder, unspecified Presentation: 05/25 07:34 Chief complaint: Patient states: 5 hours ago he felt ill, his head was swimming and he iw had trouble with his balance . felt pressure in top of head, numbness in tongue, had a warm sensation throughout his body. Coronavirus screen: At this time, the client does not indicate any symptoms associated with coronavirus-19. Ebola Screen: No symptoms or risks identified at this time. Initial Sepsis Screen: Does the patient meet any 2 criteria? No. Patient's initial sepsis screen is negative. Does the patient have a suspected source of infection? No. Patient's initial sepsis screen is negative. Risk Assessment: Do you want to hurt yourself or someone else? Patient reports no desire to harm self or others. Onset of symptoms was May 25, 2024. 07:34 Method Of Arrival: Ambulatory iw 07:34 Acuity: AIME 3 iw Historical: - Allergies: 07:39 Amoxicillin; iw - PMHx: 07:39 Anxiety; Chronic fatigue syndrome; depressive disorder; Fibromyalgia; iw - PSHx: 07:39 Adenoid excision; carpal tunnel; septoplasty; Tonsillectomy; UPPP; iw - Immunization history:: Adult Immunizations not up to date. - Infectious Disease History:: Denies. - Social history:: Smoking status: Patient denies any tobacco usage or history of. - Family history:: not pertinent. Screenin:20 [facility] ED Fall Risk Assessment (Adult) History of falling in the last 3 months, rs5 including since admission No falls in past 3 months (0 pts) Confusion or Disorientation No (0 pts) Intoxicated or Sedated No (0 pts) Impaired Gait No (0 pts) Mobility Assist Device Used No (0 pt) Altered Elimination No (0 pt) Score/Fall Risk Level 0 - 2 = Low Risk Oriented to surroundings, Maintained a safe environment. Abuse screen: Denies threats or abuse. Nutritional screening: No deficits noted. Tuberculosis screening: No symptoms or risk factors identified. Assessment: 07:20 General: Appears in no apparent distress. uncomfortable, Behavior is cooperative, rs5 anxious. Pain: Complains of pain in chest Pain does not radiate. Pain currently is 2 out of 10 on a pain scale. Quality of pain is described as aching, Pain began Is continuous. 07:20 Neuro: Level of Consciousness is awake, alert, obeys commands, Oriented to person, rs5 place, time, situation, Reports numbness in face. Cardiovascular: Patient's skin is warm and dry. Respiratory: Airway is patent Respiratory effort is even, unlabored, Respiratory pattern is regular, symmetrical. GI: Abdomen is round non-distended. : No signs and/or symptoms were reported regarding the genitourinary system. EENT: No signs and/or symptoms were reported regarding the EENT system. Derm: Skin is intact, Skin is pink, warm \T\ dry. Musculoskeletal: Range of motion: intact in all extremities. 08:31 Reassessment: Patient and/or family updated on plan of care and expected duration. Pain rs5 level reassessed. Patient is alert, oriented x 3, equal unlabored respirations, skin warm/dry/pink. 09:47 Reassessment: Patient and/or family updated on plan of care and expected duration. Pain rs5 level reassessed. Patient is alert, oriented x 3, equal unlabored respirations, skin warm/dry/pink. Patient states feeling better. Patient states symptoms have improved. Vital Signs: 07:34 BP 115 / 74; Pulse 96; Resp 16; Temp 98.1; Pulse Ox 97% on R/A; Weight 74.84 kg; Height iw 5 ft. 4 in. ; 09:14 BP 120 / 77; Pulse 80; Resp 17; Pulse Ox 99% on R/A; rs5 09:40 BP 124 / 74; Pulse 77; Resp 17; Pulse Ox 99% on R/A; rs5 07:34 Body Mass Index 28.32 (74.84 kg, 162.56 cm) ED Course: 07:18 Patient arrived in ED. im 07:19 Daniel Aragon MD is Attending Physician. you 07:20 Patient has correct armband on for positive identification. Placed in gown. Bed in low rs5 position. Call light in reach. Side rails up X2. Client placed on continuous cardiac and pulse oximetry monitoring. NIBP monitoring applied. product development engineer on. 07:30 No provider procedures requiring assistance completed. Inserted saline lock: 20 gauge rs5 in left antecubital area, using aseptic technique. Blood collected. Flushed with 10 mL NS. Patient maintains SpO2 saturation greater than 95% on room air. 07:39 Triage completed. iw 07:39 Arm band placed on. iw 07:41 Sonu Garcia, RN is Primary Nurse. rs5 09:47 Chest Pa And Lat (2 Views) XRAY In Process Unspecified. EDMS 09:48 Provided Education on: discharge instructions . rs5 09:50 IV discontinued, intact, bleeding controlled, No redness/swelling at site. Pressure rs5 dressing applied. Administered Medications: 08:50 Drug: NS 0.9% IV 1000 ml IV at 1000 ml once; to be given as a bolus over 60 minutes rs5 Route: IV; Rate: 1000 ml; Site: left antecubital; 09:40 Follow up: IV Status: Completed infusion; IV Intake: 1000ml rs5 Medication: 09:14 VIS not applicable for this client. rs5 Intake: 09:40 IV: 1000ml; Total: 1000ml. rs5 Outcome: 09:23 Discharge ordered by . you 09:50 Discharged to home ambulatory, rs5 09:50 Condition: stable rs5 09:50 Discharge instructions given to patient, family, Instructed on discharge instructions, follow up and referral plans. medication usage, Demonstrated understanding of instructions, follow-up care, medications, Prescriptions given X 2, 09:52 Patient left the ED. rs5 Signatures: Dispatcher [employer] Daniel Seo MD MD cha Williams, Irene, RN JIE Sonu Garcia, RN RN rs5 Bailee Chan
--- NOTE | 2024-05-25 11:11 | RAD REPORT ---
EXAMINATION: TWO VIEW CHEST XR CLINICAL INDICATION: Male, 24 years old. [facility] MA[facility] COUGH Bed Name: TECHNIQUE: 2 view radiographs of the chest were performed. COMPARISON: 03/04/2024 FINDINGS: The lungs are well inflated and clear. No pneumothorax or sizable effusion. The heart is normal in si ze. Mediastinal contours are unremarkable. IMPRESSION: No acute or significant abnormalities.
[2024-05-25 15:08] VITALS: TEMP 98.1
[2024-05-25 15:09] VITALS: BP 120/77; O2SAT 99
--- NOTE | 2024-05-26 12:19 | EKG ---
Test Date: 2024-05-25 Test Time: 07:31:33 Boat Detailer: JOLIE MEASUREMENT RESULTS: Intervals: Rate: 85 NV: 162 QRSD: 88 QT: 352 QTc: 418 [place]: P: 70 NV: 162 QRS: 94 T: 64 INTERPRETIVE STATEMENTS: Normal sinus rhythm Rightward axis Borderline ECG Compared to ECG 03/04/2024 03:56:09 Right-axis deviation now present Electronically Signed On 05-26-24 12:15:35 CDT by Gary Rosa
== END 2024-05-25 09:52 | disposition home or self-care (01) ==
LOC: ER 07:15
DX: R07.9 Chest pain, unspecified (principal); R06.4 Hyperventilation; F41.9 Anxiety disorder, unspecified; R53.1 Weakness; Z11.52 Encounter for screening for COVID-19
CPT/HCPCS: 93005; 87070; 85025; 36415; 87081; 84484; 80053; 87804 ×2; 71046; 87811; J7030